=== PATIENT | female | born 1945 | race Hispanic/Latino ===

== ENCOUNTER 2020-07-23 13:39 | Inpatient (IN) | payer MEDICAID, OTHER, SELFPAY ==
--- OUTSIDE RECORDS SUMMARY | 2020-07-23 17:50 | XMS REPORT | Continuity of Care Document ---
:1945 Author Organization [facility] t Address [address] [place] [address] Dr. Garcia. [address] [place] [address] Care Team Providers Name Role Phone Sridevi Pantoja MD Attending Clinician Doctor Unassigned, Name Attending Clinician Unavailable Problems This patient has no known problems. Allergies, Adverse Reactions, Alerts This patient has no known allergies or adverse reactions. Medications This patient has no known medications. Procedures This patient has no known procedures. Encounters Start End Encounter Admission Attending Care Care Encounter Source Date/Time Date/Time Type Type Clinicians Facility Department ID 2020-07-09 2020-07-09 [facility] [id number] 10:30:00 23:59:00 Encounter Sridevi Flower [id number] [place] [id number] 2020-07-09 2020-07-09 Orders Doctor ARRON [id number] 00:00:00 00:00:00 Only Unassigned, SAMEER [id number] [place] [id number] Results This patient has no known results.
[2020-07-23 19:32] VITALS: BMI 27.1
[2020-07-23 21:37] LABS: Absolute Lymphocytes (CBC) 2.1 K/uL (0.7-4.9); Basophils % 1.2 % (0-1.3); Hematocrit 34.2 % (36.0-45.0); Lymphocytes % 32.5 % (15.3-44.8); MPV 8.6 fL (7.6-11.3); RBC Red Blood Cell Count 3.73 M/uL (3.86-4.86)
[2020-07-23 21:53] LABS: Albumin 3.8 g/dL (3.4-5.0); CKMB Creatine Kinase MB 2.4 ng/mL (0.3-3.6); Phosphorus 3.6 mg/dL (2.5-4.9); Potassium 3.5 mmol/L (3.5-5.1); Uric Acid 7.7 mg/dL (2.6-6.0)
[2020-07-23] MEDS: NA CHLORIDE 0.9% 1,000 ML IV SCH (22:24)
[2020-07-23 22:26] LABS: Urine Appearance CLEAR; Urine Bilirubin NEGATIVE (NEG); Urine Blood TRACE (NEG); Urine Color YELLOW; Urine Glucose NEGATIVE (NEG); Urine Protein 2+ (NEG); Urine Specific Gravity <=1.005 (1.005-1.030); Urine Urobilinogen 0.2 mg/dL (0.2-1.0)
[2020-07-24 00:02] LABS: Urine Microscopic Reflex ORDER UMIC
[2020-07-24 00:22] LABS: Urine Bacteria 20-50 /HPF (<20); Urine Yeast FEW (NONE SEEN)
--- NOTE | 2020-07-24 03:48 | P.HP ---
Certification for Inpatient Patient admitted to: Inpatient With expected LOS: >2 Midnights Patient will require the following post-hospital care: None Practitioner: I am a practitioner with admitting privileges, knowledge of patient current condition, hospital course, and medical plan of care. Services: Services provided to patient in accordance with Admission requirements found in Title 42 Section 412.3 of the Code of Federal Regulations Patient History Date of Service: 07/24/20 Reason for admission: HD catheter History of Present Illness: Ms. Bello is a 75 yo female with HTN and h/o of CVA here as a direct admit from Dr. Pantoja's office for catheter placement by surgery and initiation of hemodialysis. Per daughter, she had labs checked last month and more recently as was told her GFR was low. She denies chest pain, SOB, pain, edema, nausea, vomiting. Hemoglobin 11.5, Hematocrit 34.2. BUN 63. Cr 2.93. GFR 16. Glucose 147. Uric acid 7.7. PTH 175.5 Allergies No Known Allergies Allergy (Unverified 07/23/20 14:15) Home Medications: Amlodipine [Norvasc*] 5 mg PO DAILY 07/23/20 Clopidogrel Bisulfate [Plavix*] 75 mg PO DAILY 07/23/20 Metoprolol Succinate [Toprol Xl*] 50 mg PO BID 07/23/20 Rosuvastatin [Crestor*] 10 mg PO DAILY 07/23/20 - Past Medical/Surgical History Has patient received pneumonia vaccine in the past: No Diabetic: No -: HTN -: Arthritis -: CVA-1997 -: Hemorrhoidectomy - Family History Father History Unknown: Yes Mother -: Hypertension, Stroke - Social History Smoking Status: Never smoker Alcohol use: No CD- Drugs: No Caffeine use: Yes Place of Residence: Home Review of Systems General: Unremarkable Eyes: Unremarkable ENT: Unremarkable Respiratory: Unremarkable Cardiovascular: Unremarkable Gastrointestinal: Unremarkable Genitourinary: Unremarkable Musculoskeletal: Unremarkable Integumentary: Unremarkable Neurological: Unremarkable Lymphatics: Unremarkable Physical Examination - Vital Signs Temperature: 97.4 F Blood Pressure: 140/63 Pulse: 63 Respirations: 18 Pulse Ox (%): 98 - Physical Exam General: Alert, In no apparent distress, Oriented x3 HEENT: Atraumatic, Normocephalic, PERRLA, Mucous membr. moist/pink, EOMI, Sclerae nonicteric Neck: Supple, 2+ carotid pulse no bruit, JVD not distended, No Thyromegaly, No LAD Respiratory: Clear to auscultation bilaterally, Normal air movement Cardiovascular: Normal pulses, Regular rate/rhythm, Normal S1 S2, No gallops, No rubs, No murmurs Capillary refill: <2 Seconds Gastrointestinal: Normal bowel sounds, Soft and benign, Non-distended, No ascites, No tenderness, No masses, No rebound, No guarding Musculoskeletal: No clubbing, No swelling, No contractures, No erythema, No tenderness, No warmth Integumentary: No rashes, No breakdown, No significant lesion, No tenderness/swelling, No erythema, No warmth Neurological: Normal speech, Normal strength at 5/5 x4 extr, Normal tone, Sensation intact, Cranial nerves 3-12 intact, Normal affect Lymphatics: No axilla or inguinal lymphadenopathy - Studies Laboratory Data (last 24 hrs) 07/23/20 20:38: Sodium 139, Potassium 3.5, BUN 63 H, Creatinine 2.93 H, Glucose 147 H, Uric Acid 7.7 H, Phosphorus 3.6 07/23/20 20:38: WBC 6.30, Hgb 11.5 L, Hct 34.2 L, Plt Count 189 Assessment and Plan - Plan Assessment #Chronic Kidney Disease requiring HD #HTN #h/o of CVA #HLD Plan #Chronic Kidney Disease requiring HD -nephrology consult placed for HD, appreciate recommendations -surgery consult placed for catheter -case management consult placed for chair time -hepatitis panel pending #HTN -stable, continue to monitor -will reconcile home medications per nephrology recs #h/o of CVA -stable, continue to monitor -will reconcile home medications per nephrology recs #HLD -stable, continue to monitor -will reconcile home medications per nephrology recs Discharge Plan: Home Plan to discharge in: Unknown - Advance Directives Does patient have a Living Will: No Does patient have a Durable POA for Healthcare: No - Code Status/Comfort Care Code Status Assessed: Yes (full code) Critical Care: No Time Spent Managing Pts Care (In Minutes): 70
[2020-07-24 06:21] LABS: Absolute Lymphocytes (CBC) 4.2 K/uL (0.7-4.9); Basophils % 0.8 % (0-1.3); Lymphocytes % 52.5 % (15.3-44.8); MPV 8.3 fL (7.6-11.3)
[2020-07-24 07:14] LABS: Albumin 3.8 g/dL (3.4-5.0); Bilirubin Total 0.5 mg/dL (0.2-1.0); Phosphorus 3.6 mg/dL (2.5-4.9); Potassium 3.5 mmol/L (3.5-5.1); Protein, Total 7.7 g/dL (6.4-8.2)
[2020-07-24] MEDS ORDERED: PNEUMOCOCCAL VACCINE 0.5 ML IMVAC ONE (08:00)
[2020-07-24] MEDS ORDERED: INFLUENZA VACCINE (for 3y+) 0.5 ML DOSE IMVAC ONE (08:00)
[2020-07-24] MEDS: NA CHLORIDE 0.9% 1,000 ML IV SCH ×2 (08:20→13:42)
--- NOTE | 2020-07-24 10:07 | RAD REPORT ---
EXAM DESCRIPTION: RAD - Chest Pa And Lat (2 Views) - 07/24/2020 9:56 am CLINICAL HISTORY: clearance for sx Chest pain. COMPARISON: No comparisons FINDINGS: The lungs are clear. The heart is normal in size. No displaced fractures. IMPRESSION: No acute or concerning finding suspected.
[2020-07-24] MEDS ORDERED: NS 0.9% VIAL 10 ML ONE ×2 (10:53→12:03)
[2020-07-24] MEDS ORDERED: HEPARIN 5000 UNIT/ML 1 ML VIAL ONE ×2 (10:53→10:54)
[2020-07-24] MEDS ORDERED: NA CHLORIDE 0.9% 100 ML IV ONE (10:54)
[2020-07-24] MEDS: LIDOCAINE 1% MPF 30 ML VIAL ONE ×2 (10:54→12:09)
[2020-07-24 10:59] LABS: Protime INR 0.91
[2020-07-24] MEDS ORDERED: propofoL 200 MG/20 ML VIAL IV ONE (11:08)
[2020-07-24] MEDS ORDERED: LIDOCAINE 1% MPF 5 ML VIAL ONE (11:09)
[2020-07-24] MEDS ORDERED: FENTANYL CITR 100 MCG/2 ML ONE (11:09)
[2020-07-24] MEDS ORDERED: MIDAZOLAM HCL 2 MG/2 ML INJ ONE (11:09)
[2020-07-24] MEDS ORDERED: CEFAZOLIN SODIUM 1 GM/VIAL ONE (11:54)
--- NOTE | 2020-07-24 11:59 | CON ---
Date of Consultation: 07/24/2020 Diagnosis: Renal failure. History Of Present Illness: This is a case of a female 75-year-old patient with multiple medical pro blems, admitted to the hospital for placement of a hemodialysis catheter in need of hemodialysis. Gosia hanley has been dealing with low GFR for sometimes, but this time gets worse. Past Medical History: Include hypertension, arthritis, CVA 1997. Past Surgical History: Include hemorrhoidectomy. Allergies: NONE. Medications: Norvasc, Plavix, Toprol, Crestor. Family History: Include stroke, hypertension. Social History: She does not smoke. She does drink alcohol. Review of Systems: Ten points otherwise unremarkable. Physical Examination: General: The patient is awake and alert. HEENT: Pupils are equal and reactive, anicteric. Neck: Supple. Chest: Clear. Abdomen: Soft and depressible. No tenderness. Extremities: Good capillary refill. Laboratory Data: Blood work shows WBC count of 8.1 with hemoglobin of 12. INR 0.9. Potassium 3.5, creatinine is 2.73 with GFR of 17. Assessment: A 75-year-old patient need a hemodialysis catheter placement. A tunnel was request with benefits, alternatives, and risks fully explained to the patient which include, but not limited to i nfection, bleeding, damage to adjacent structures, anesthesia complication, hemothorax, pneumothorax, PE, DVTs, IA and even . They also understood this may not relieve symptoms. She might need mo re than one surgical intervention. She understands this is a temporary catheter, they are going to u se of the next few months and they decide to do permanent dialysis and she has to find a vascular kwan geon of her preference to put a peripheral more permanent access for dialysis. She understood the im portance of keeping the area clean. HM/MODL Voice ID: [id number] Report ID: [id number]
--- NOTE | 2020-07-24 12:18 | P.BOP ---
Preoperative diagnosis: ESRF Postoperative diagnosis: same Primary procedure: 1. Placement of Hemodialysis tunneled cath Secondary procedure: 2. Interpretation of fluoroscopy Other procedure(s): 3. right neck jugular vein ultrasound Estimated blood loss: <10cc Specimen: none Findings: patent Jugular Anesthesia: General Complications: None Drain(s): Other Transferred to: Recovery Room Condition: Good
[2020-07-24] MEDS ORDERED: HYDROCODONE/APAP 5/325 MG TAB PO PRN (12:21)
[2020-07-24] MEDS ORDERED: MORPHINE 2 MG/ML SYR IV PRN (12:21)
--- NOTE | 2020-07-24 12:28 | RAD REPORT ---
EXAM DESCRIPTION: RAD - Fluoroscopy <1 Hour - 07/24/2020 12:23 pm CLINICAL HISTORY: Venous catheter insertion. DIALYSIS CATH COMPARISON: No comparisons FINDINGS: Fluoroscopy time 0.4 minutes.
[2020-07-24] MEDS ORDERED: ONDANSETRON 4 MG/2 ML VIAL ONE (12:32)
[2020-07-24] MEDS ORDERED: dexAMETHasone 10 MG/ML VIAL ONE (12:32)
[2020-07-24 12:56] LABS: Blood Morphology Comment NOT SEEN (NOT SEEN); Platelet Estimate ADEQ; White Blood Cell Scan OK (OK)
--- NOTE | 2020-07-24 12:59 | OP ---
Date of Procedure: 07/24/2020 Surgeon: Roger Gambino MD Preoperative Diagnosis: End-stage renal disease. Postoperative Diagnosis: End-stage renal disease. Procedures Performed: 1.Placement of hemodialysis tunneled catheter in the right internal jugular vein. 2.Interpretation of fluoroscopy. 3.Right neck ultrasound. Anesthesia: General. Complications: None. Hemodialysis: 19 cm. Indications: This is a case of a 75-year-old patient in need of hemodialysis catheter. I was contac malik by the primary doctor for placement. The benefits, alternatives, and risks were fully explained to the patient and family which include, but not limited to infection, bleeding, damage to adjacent s tructures, anesthesia complication, recurrence, PEs, pericarditis, DVTs, MA, and even . She als o understands as soon as she is not using this and they terminate the dialysis, to remove this cathet er. If she continue with dialysis, then she needs a more permanent access as soon as possible. She understood, signed a consent. Description Of Procedure: The patient was brought to the operating room, placed in supine position. Anesthesia was done without complication. A time-out was called. Right neck was prepped and draped in sterile fashion. The patient was placed in Trendelenburg position. An ultrasound was done of th e right neck area looking to be a patent jugular vein. An 18-gauge needle was placed in the internal jugular vein at the first attempt. A guidewire was passed through. Needle was removed. This guide wire was guided into superior vena cava using fluoroscopy. An incision was made in the right upper c hest. The catheter was tunneled from there into the incision in the chest region. Then, we proceede d to place multiple dilators through the guidewire under fluoroscopy guidance and the introducer kit sheath. The guidewire was removed. The catheter was placed through the introducer sheath. The intr oducer sheath was then peeled off. This was done under fluoroscopy. The fluoroscopy showed catheter to be well positioned, excellent backflow and inflow. The line was secured in place with 3-0 nylon and the line was flushed with heparinized solution. The patient was brought back from Trendelenburg position to normal position. The patient tolerated the procedure well. The patient was sent to [facility] in stable condition and chest x-ray was ordered stat. HM/MODL Voice ID: [id number] Report ID: [id number]
--- NOTE | 2020-07-24 13:21 | RAD REPORT ---
EXAM DESCRIPTION: RAD - Chest Single View - 07/24/2020 1:10 pm CLINICAL HISTORY: S/P HD CATH INSERTION Chest pain. COMPARISON: Chest Pa And Lat (2 Views) dated 07/24/2020 FINDINGS: Portable technique limits examination quality. Right-sided venous catheter tip is in the SVC. No pneumothorax. The heart is normal in size. IMPRESSION: No postprocedure pneumothorax seen.
[2020-07-24] MEDS ORDERED: METOPROLOL XL 50 MG TAB PO SCH (21:00)
[2020-07-24] MEDS: METOPROLOL XL 50 MG TAB PO SCH (21:06)
[2020-07-24 23:17] LABS: Rheumatoid Factor POS (NEG); Rheumatoid Factor Titer 1:8 (64 RF IU/mL)
[2020-07-25 06:34] LABS: Albumin 3.4 g/dL (3.4-5.0); Potassium 4.1 mmol/L (3.5-5.1)
--- NOTE | 2020-07-25 08:32 | EKG ---
Test Date: 2020-07-24 Test Time: 09:58:07 Safety Engineer: CARIDAD MEASUREMENT RESULTS: Intervals: Rate: 72 DC: 176 QRSD: 100 QT: 394 QTc: 431 [place]: P: 33 DC: 176 QRS: 71 T: 24 INTERPRETIVE STATEMENTS: Normal sinus rhythm Normal ECG No previous ECG available for comparison Electronically Signed On 07-25-20 08:29:20 CHILD SUPPORT INVESTIGATOR by Juan Orozco
[2020-07-25] MEDS ORDERED: ROSUVASTATIN 10 MG TAB PO SCH (09:00)
[2020-07-25] MEDS: METOPROLOL XL 50 MG TAB PO SCH ×2 (09:00→21:18)
[2020-07-25] MEDS ORDERED: AMLODIPINE 5 MG TAB PO SCH (09:00)
--- NOTE | 2020-07-25 17:31 | P.CNS ---
Date of Consult: 07/25/20 Reason for Consult: CKD Chief Complaint: HD catheter History of Present Illness: A 75 yo female with P<Hx of progressive CKD , HTN and h/o of CVA pt admitted for progressive CKD and to initiate HD in ER BUN 63. Cr 2.93. GFR 16. Glucose 147. Uric acid 7.7. PTH 175.5 Review of Systems: Head and Neck: No red eye. No ear pain. GI: denied nausea or diarrhea. : No polyuria. No dysuria. No hematuria. Scallop Shucker: N/A Respiratory: No shortness of breath. Cardiovascular: denied chest pain or palpitation Endocrine: No polydipsia. Skin: No rash. Neuro: denied neuropathy. Musculoskeletal: hand cramping Physical exam general: AAOX3, NAD , Neck; Supple, No elevated JVD hear: RRR, normal S1,2 no murmur or rub Chest: CTAB, no rales or wheezes Abdomen: Soft , Nt Extremities No edema or ulcer A/P CKD V started on HD F/U serology W/U HD as per schedule renal dose meds Anemia of chronic disease no need for epogen HTN Controlled HLD cont statin total time spent 45min Allergies No Known Allergies Allergy (Unverified 07/23/20 14:15) Home Medications: Amlodipine [Norvasc*] 5 mg PO DAILY 07/23/20 Clopidogrel Bisulfate [Plavix*] 75 mg PO DAILY 07/23/20 Metoprolol Succinate [Toprol Xl*] 50 mg PO BID 07/23/20 Rosuvastatin [Crestor*] 10 mg PO DAILY 07/23/20 - Past Medical/Surgical History Diabetic: No -: HTN -: Arthritis -: CVA-1997 -: Hemorrhoidectomy - Family History Father History Unknown: Yes Mother Medical History: Hypertension, Stroke - Social History Alcohol use: No CD- Drugs: No Caffeine use: Yes Place of Residence: Home Physical Examination Temp Pulse Resp BP Pulse Ox 97.9 F 66 18 136/80 98 07/25/20 12:00 07/25/20 12:00 07/25/20 12:00 07/25/20 12:00 07/25/20 12:00 Laboratory Data (last 24 hrs) 07/25/20 05:54: Sodium 147 H, Potassium 4.1, BUN 46 H, Creatinine 2.77 H, Glucose 134 H, Phosphorus 3.0
[2020-07-26 06:58] LABS: Albumin 3.3 g/dL (3.4-5.0); Potassium 3.8 mmol/L (3.5-5.1)
[2020-07-26] MEDS: METOPROLOL XL 50 MG TAB PO SCH ×2 (10:07→21:16)
--- NOTE | 2020-07-26 12:42 | P.PN ---
Subjective Date of Service: 07/26/20 Chief Complaint: HD catheter A 75 yo female with PHHx of CKD , HTN and h/o of CVA pt admitted for renal biopsy and to initiate HD in ER BUN 63. Cr 2.93. GFR 16. Glucose 147. Uric acid 7.7. PTH 175.5 Today no overnight events stable VS next HD tomorrow or Monday Physical exam general: AAOX3, NAD , Neck; Supple, No elevated JVD hear: RRR, normal S1,2 no murmur or rub Chest: CTAB, no rales or wheezes Abdomen: Soft , Nt Extremities No edema or ulcer A/P JOHNY on CKD III started on HD F/U serology W/U HD on Monday renal dose meds plan for renal biopsy on Monday Anemia of chronic disease no need for epogen HTN Controlled HLD cont statin total time spent 45min Physical Examination - Vital Signs Temperature: 97.0 F Blood Pressure: 170/77 Pulse: 66 Respirations: 17 Pulse Ox (%): 98 - Studies Laboratory Data (last 24 hrs) 07/26/20 05:28: Sodium 143, Potassium 3.8, BUN 47 H, Creatinine 2.87 H, Glucose 116 H, Phosphorus 3.0 Microbiology Data (last 24 hrs): 07/23/20 20:15 Clean Catch Urine [place] Count - Final BETWEEN 10,000 & 100,000 CFU/ML 07/23/20 20:15 Clean Catch Urine - Final MIXED FERN.
--- NOTE | 2020-07-26 20:52 | P.PN ---
Subjective Date of Service: 07/25/20 Patient doing well with no new complaints. Status post hemodialysis. Clinically doing well. Review of Systems 10-point ROS is otherwise unremarkable Physical Examination - Vital Signs Temperature: 97.8 F Blood Pressure: 155/72 Pulse: 63 Respirations: 18 Pulse Ox (%): 95 - Physical Exam General: Alert, In no apparent distress, Oriented x3 Respiratory: Clear to auscultation bilaterally, Normal air movement Cardiovascular: Regular rate/rhythm, Normal S1 S2, No murmurs Gastrointestinal: Normal bowel sounds, Soft and benign, Non-distended, No tenderness Musculoskeletal: No clubbing, No swelling, No tenderness Neurological: Sensation intact, Cranial nerves 3-12 intact - Studies Laboratory Data (last 24 hrs) 07/26/20 05:28: Sodium 143, Potassium 3.8, BUN 47 H, Creatinine 2.87 H, Glucose 116 H, Phosphorus 3.0 Microbiology Data (last 24 hrs): 07/23/20 20:15 Clean Catch Urine [place] Count - Final BETWEEN 10,000 & 100,000 CFU/ML 07/23/20 20:15 Clean Catch Urine - Final MIXED FERN. Medications List Reviewed: Yes Assessment & Plan - Problems (Diagnosis) (1) ESRD (end stage renal disease) Current Visit: Yes Status: Acute (2) HTN (hypertension) Current Visit: Yes Status: Acute - Plan Plan: 1. Renal biopsy on Monday 2. Resume hemodialysis Monday 3. Monitor blood pressure 4. Monitor renal function 5. Monitor electrolytes 6. Hold anti-platelet therapy 7. GI/DVT prophylaxis Discharge Plan: Home Plan to discharge in: Greater than 2 days - Advance Directives Does patient have a Living Will: No Does patient have a Durable POA for Healthcare: No - Code Status/Comfort Care Code Status Assessed: Yes Code Status: Full Code Critical Care: No Time Spent Managing PTS Care (In Minutes): 35
--- NOTE | 2020-07-26 20:54 | P.PN ---
Date of Service: 07/26/20 Subjective spoke to patient's daughter today about plan of care. Arrange for outpatient hemodialysis. Renal biopsy tomorrow. Continue with hemodialysis during hospitalization. She may not be able to get the renal biopsy tomorrow because she had last dose of Plavix on . Today is day 3 being without Plavix and tomorrow will be day 4. discussed with Nephrology and they will talk with Radiology. Otherwise, clinically doing well. Review of Systems 10-point ROS is otherwise unremarkable Physical Examination - Vital Signs reviewed - Physical Exam General: Alert, In no apparent distress, Oriented x3 Respiratory: Clear to auscultation bilaterally, Normal air movement Cardiovascular: Regular rate/rhythm, Normal S1 S2, No murmurs Gastrointestinal: Normal bowel sounds, Soft and benign, Non-distended, No tenderness Musculoskeletal: No clubbing, No swelling, No tenderness Neurological: Sensation intact, Cranial nerves 3-12 intact Assessment & Plan - Problems (Diagnosis) (1) ESRD (end stage renal disease) Current Visit: Yes Status: Acute (2) HTN (hypertension) Current Visit: Yes Status: Acute - Plan Plan: 1. Renal biopsy possibly on Monday 2. Resume hemodialysis Monday 3. Monitor blood pressure 4. Monitor renal function 5. Monitor electrolytes 6. Hold anti-platelet therapy 7. GI/DVT prophylaxis
[2020-07-27 05:53] LABS: Absolute Lymphocytes (CBC) 2.9 K/uL (0.7-4.9); Basophils % 0.6 % (0-1.3); Hematocrit 34.9 % (36.0-45.0); Lymphocytes % 32.1 % (15.3-44.8); MPV 8.1 fL (7.6-11.3); RBC Red Blood Cell Count 3.78 M/uL (3.86-4.86)
[2020-07-27 06:30] LABS: Albumin 3.4 g/dL (3.4-5.0); Bilirubin Total 0.4 mg/dL (0.2-1.0); Magnesium 2.8 mg/dL (1.8-2.4); Phosphorus 4.3 mg/dL (2.5-4.9); Potassium 3.8 mmol/L (3.5-5.1); Protein, Total 7.1 g/dL (6.4-8.2)
--- NOTE | 2020-07-27 11:23 | P.PN ---
Subjective Date of Service: 07/27/20 Primary Care Provider: none; From the [facility] Chief Complaint: HD catheter Subjective: Improving, Doing well Physical Examination - Vital Signs Temperature: 98.1 F Blood Pressure: 170/76 Pulse: 56 Respirations: 18 Pulse Ox (%): 97 - Studies Laboratory Data (last 24 hrs) 07/27/20 05:38: Sodium 143, Potassium 3.8, BUN 56 H, Creatinine 3.11 H, Glucose 112 H, Phosphorus 4.3, Magnesium 2.8 H, Total Bilirubin 0.4, AST 36, ALT 44, Alkaline Phosphatase 56 07/27/20 05:38: WBC 9.10, Hgb 11.7 L, Hct 34.9 L, Plt Count 157 07/27/20 05:00: Sodium Cancelled, Potassium Cancelled, BUN Cancelled, Creatinine Cancelled, Glucose Cancelled, Phosphorus Cancelled Microbiology Data (last 24 hrs): 07/23/20 20:15 Clean Catch Urine [place] Count - Final BETWEEN 10,000 & 100,000 CFU/ML 07/23/20 20:15 Clean Catch Urine - Final MIXED FERN. Medications List Reviewed: Yes Assessment & Plan Discharge Plan: Home Plan to discharge in: 72 Hours Physician Review Additional Text: Physical exam: Patient alert, cooperative. No significant distress noted. Heart: Regular rate rhythm Lungs: Clear to auscultation Abdomen: Soft nontender nondistended Extremities: Good range of motion Impression: Acute on chronic renal disease stage 5 now with end-stage renal disease on hemodialysis Hypertension Hyperlipidemia History CVA Plan: Acute on chronic renal disease stage 5 now with end-stage renal disease on hemodialysis: Patient had dialysis catheter placed. Continue with hemodialysis today. Will adjust blood pressure medication for better control. Will add Norvasc. Patient remains on metoprolol. Continue to hold Plavix in preparation for renal biopsy on Monday. Found out patient is uninsured and from the [facility]. This will be difficult for her to qualify for outpatient hemodialysis. Will discuss with social science instructor and Nephrology. Spoke with patient and daughter at length. Patient desires to go back to the [facility] in the future. Will discuss with Nephrology about options of care for her as it relates to hemodialysis as an outpatient. Because of her uninsured status and from the [facility] patient will likely require hospitalization for future dialysis. Anticipate likely discharge on Monday after biopsy. Hypertension: Continue metoprolol. Add Norvasc. Will continue to adjust medication Hyperlipidemia: Restart Crestor History CVA: Continue to hold Plavix in preparation for renal biopsy on Monday. Time Spent Managing Pts Care (In Minutes): 55
[2020-07-27] MEDS: METOPROLOL XL 50 MG TAB PO SCH ×2 (12:16→21:43)
[2020-07-27 16:03] LABS: HIV AG/AB 4TH GEN Non-reactive (Non-reactive)
[2020-07-27 16:04] LABS: HIV AG/AB 4TH GEN Non-reactive (Non-reactive)
[2020-07-27] MEDS ORDERED: PNEUMOCOCCAL VACCINE 0.5 ML IMVAC ONE (19:00)
[2020-07-27 19:05] LABS: HBsAG Nonreactive (Nonreactive)
[2020-07-27] MEDS: ROSUVASTATIN 10 MG TAB PO SCH (21:43)
--- NOTE | 2020-07-28 01:34 | PN ---
Date of Progress Note: 07/27/2020 Chief Complaint: Chronic kidney disease, accelerated chronic kidney disease, prerenal azotemia. BUN is 63, creatinine 9.3, and glucose 137. Review of Systems: Denies PND or orthopnea. Physical Examination: Lungs: Diminished breath sounds at bases. Heart: S1, S2. Extremities: No edema. Impression And Plan: 1.Progressive renal insufficiency, chronic kidney disease stage 4/5. The patient will continue matilda l dose of medication. 2.Hypertension. Controlled. 3.Arthritis. Avoid nonsteroidal anti-inflammatory medication. 4.Hyperlipidemia. The patient is on Lipitor. Monitor CK level. EB/MODL Voice ID: [id number] Report ID: [id number]
[2020-07-28 05:49] LABS: Albumin 3.6 g/dL (3.4-5.0); Phosphorus 4.3 mg/dL (2.5-4.9)
--- NOTE | 2020-07-28 08:40 | RAD REPORT ---
EXAM DESCRIPTION: US - Renal Ultrasound-Complete - 07/28/2020 8:12 am CLINICAL HISTORY: Acute renal insufficiency/chronic renal insufficiency COMPARISON: None FINDINGS: The right kidney measures 9 centimeters with an increased echotexture The left kidney measures 9 centimeters with an increased echotexture. Small bilateral renal cysts Hydronephrosis is not seen. No gross abnormality of bladder Cholelithiasis IMPRESSION: Markedly increased renal echotexture consistent with parenchymal disease. Cholelithiasis
[2020-07-28] MEDS: METOPROLOL XL 50 MG TAB PO SCH ×2 (08:46→21:11)
[2020-07-28] MEDS ORDERED: AMLODIPINE 5 MG TAB PO SCH (09:00)
--- NOTE | 2020-07-28 09:07 | P.PN ---
Subjective Date of Service: 07/28/20 Primary Care Provider: none; From the [facility] Chief Complaint: HD catheter Subjective: Doing well (Reports some constipation.) Physical Examination - Vital Signs Temperature: 98.2 F Blood Pressure: 210/93 Pulse: 64 Respirations: 18 Pulse Ox (%): 96 - Studies Laboratory Data (last 24 hrs) 07/28/20 05:11: Sodium 147 H, Potassium 4.0, BUN 53 H, Creatinine 3.03 H, Glucose 115 H, Phosphorus 4.3 Medications List Reviewed: Yes Assessment & Plan Discharge Plan: Home Plan to discharge in: 24 Hours Physician Review Additional Text: Physical exam: Patient alert, cooperative. No significant distress noted. Up pressures remain elevated. Heart: Regular rate rhythm Lungs: Clear to auscultation Abdomen: Soft nontender nondistended Extremities: Good range of motion Impression: Acute on chronic renal disease stage 5 now with end-stage renal disease on hemodialysis Hypertension Hyperlipidemia History CVA Constipation Plan: Acute on chronic renal disease stage 5 now with end-stage renal disease on hemodialysis: Continue with dialysis. Blood pressure remains elevated. Will increase Norvasc to 10 mg daily. Will also add hydralazine 25 mg 3 times a day. Continue metoprolol. Continue to hold Plavix in preparation for renal biopsy on Monday. Found out patient is uninsured and from the [facility]. This will be difficult for her to qualify for outpatient hemodialysis. Spoke with patient and daughter at length. Patient desires to go back to the [facility] in the future. Today patient reports that she may be able to get some assistance for insurance. Will need to discuss this with social work as this may help her get outpatient dialysis. Will also discuss with nephrology about options of care if no insurance is available. Because of her uninsured status and from the [facility] patient will likely require hospitalization for future dialysis needs. Will discuss with nephrology. Anticipate likely discharge on Monday after biopsy. Hypertension: Continue metoprolol. Increase Norvasc. Additional medication includes hydralazine. Hyperlipidemia: Continue Crestor History CVA: Continue to hold Plavix in preparation for renal biopsy on Monday. Constipation: Will add stool softener. Time Spent Managing Pts Care (In Minutes): 55
[2020-07-28] MEDS: DOCUSATE NA 100 MG CAP PO SCH (11:51)
[2020-07-28] MEDS: HYDRALAZINE HCL 25 MG TABLET PO SCH ×2 (14:40→21:13)
[2020-07-28] MEDS ORDERED: BISACODYL 10 MG RECTAL SUPP PR ONE (21:00)
[2020-07-28] MEDS: ROSUVASTATIN 10 MG TAB PO SCH (21:13)
--- NOTE | 2020-07-29 01:01 | PN ---
Date of Progress Note: 07/28/2020 Chief Complaint: Chronic kidney disease, accelerated chronic kidney disease versus acute kidney inju ry. BUN is 63 and creatinine was 9.3. Subjective: The patient was started on dialysis. Renal ultrasound revealed hyperechoic kidney. Review of Systems: Denies PND or orthopnea. Physical Examination: Lungs: Diminished breath sounds at bases. Heart: S1, S2. Abdomen: Soft, benign. Extremities: No edema. Impression And Plan: 1.Progressive renal insufficiency, chronic kidney disease stage 4/5. The patient was initiated on d ialysis. The patient will have dialysis today. 2.Hypertension, controlled. Monitor blood pressure. 3.Arthritis. Avoid nonsteroidal anti-inflammatory medication. 4.Hyperlipidemia. The patient is on Lipitor. Monitor CK level. LESLIE/KEREN Voice ID: [id number] Report ID: [id number]
[2020-07-29 05:26] LABS: Albumin, (SPE) 3.9 g/dL (3.8-4.8); Alpha-1-Globulins 0.2 g/dL (0.2-0.3); Alpha-2-Globulins 1.1 g/dL (0.5-0.9); Gamma Globulins 0.9 g/dL (0.8-1.7); INTERPRETATION REPORT
[2020-07-29 06:34] LABS: Absolute Lymphocytes (CBC) 1.4 K/uL (0.7-4.9); Basophils % 0.5 % (0-1.3); Hematocrit 36.9 % (36.0-45.0); Lymphocytes % 11.8 % (15.3-44.8); MPV 9.3 fL (7.6-11.3); RBC Red Blood Cell Count 4.02 M/uL (3.86-4.86)
[2020-07-29 06:41] LABS: Magnesium 2.4 mg/dL (1.8-2.4); Potassium 4.3 mmol/L (3.5-5.1)
[2020-07-29] MEDS: METOPROLOL XL 50 MG TAB PO SCH ×2 (09:00→21:46)
[2020-07-29] MEDS: HYDRALAZINE HCL 25 MG TABLET PO SCH ×3 (09:00→21:46)
[2020-07-29] MEDS ORDERED: DESMOPRESSIN 4 MCG/ML AMP IV ONE (09:00)
[2020-07-29] MEDS ORDERED: MIDAZOLAM HCL 2 MG/2 ML INJ ONE (09:04)
[2020-07-29] MEDS ORDERED: NALOXONE 0.4 MG/ML VIAL ONE (09:04)
[2020-07-29] MEDS ORDERED: FENTANYL CITR 100 MCG/2 ML ONE (09:05)
[2020-07-29] MEDS ORDERED: DESMOPRESSIN 20 MCG in NA CHLORIDE 0.9% 50 ML IV ONE (10:00)
--- NOTE | 2020-07-29 11:44 | P.PN ---
Subjective Date of Service: 07/29/20 Primary Care Provider: none; From the [facility] Chief Complaint: HD catheter Subjective: Improving, Doing well Physical Examination - Vital Signs Temperature: 98.7 F Blood Pressure: 136/72 Pulse: 97 Respirations: 18 Pulse Ox (%): 99 - Studies Laboratory Data (last 24 hrs) 07/29/20 05:11: Sodium 137, Potassium 4.3, BUN 32 H D, Creatinine 2.71 H, Glucose 133 H, Magnesium 2.4 07/29/20 05:11: WBC 11.50 H D, Hgb 12.2, Hct 36.9, Plt Count 142 L Medications List Reviewed: Yes Assessment & Plan Discharge Plan: Home Plan to discharge in: 24 Hours Physician Review Additional Text: Physical exam: Patient alert, cooperative. No significant distress noted. Blood pressure is now better control. Heart: Regular rate rhythm Lungs: Clear to auscultation Abdomen: Soft nontender nondistended Extremities: Good range of motion Impression: Acute on chronic renal disease stage 5 now with end-stage renal disease on hemodialysis Hypertension Hyperlipidemia History CVA Constipation Plan: Acute on chronic renal disease stage 5 now with end-stage renal disease on hemodialysis: Patient had renal biopsy done today. Blood pressure improved with adjustments in medication. Currently on Norvasc, hydralazine and metoprolol. Spoke with social work. Patient is originally from the [facility]. She has the resident card. Patient to get insurance in November. Spoke with nephrology concerning this. Patient may require future dialysis but this may be limited due to lack of insurance for short while. Best case scenario is the patient go home with dialysis catheter. Family to try to get her on insurance sooner rather than later. Hopefully her condition will continue to improve without the need for dialysis. Await preliminary biopsy report. Possible discharge as early as tomorrow. Hypertension: Blood pressure improved with metoprolol, Norvasc and hydralazine. Hyperlipidemia: Continue Crestor History CVA: Hold Plavix in preparation for biopsy. Restart tomorrow. Constipation: Continue with stool softener. Time Spent Managing Pts Care (In Minutes): 55
--- NOTE | 2020-07-29 13:45 | RAD REPORT ---
EXAM DESCRIPTION: CT - Renal Biopsy CT - 07/29/2020 11:58 am CLINICAL HISTORY: Chronic and acute renal disease TECHNIQUE: The risks, benefits alternatives to the procedure were explained to the patient and infor med consent obtained Conscious sedation was performed for approximately 30 minutes. A nurse monitored vital signs througho ut the examination 2 milligrams Versed and 75 micrograms fentanyl administered intravenously All CT scans are performed using dose optimization technique as appropriate and may include automated exposure control or mA/KV adjustment according to patient size. The skin, subcutaneous tissue and musculature were anesthetized Lidocaine. Under CT guidance a 17 gauge needle was placed into the posterior aspect of the lower pole of the lef t kidney. An 18 gauge needle was then placed through this and 2 two centimeter core specimens obtaine d and given to pathology The post biopsy images do not demonstrate a hematoma. Patient experienced no immediate complication IMPRESSION: Two core biopsies of the left kidney
[2020-07-29] MEDS: AMLODIPINE 10 MG TAB PO SCH (16:20)
[2020-07-29] MEDS: ROSUVASTATIN 10 MG TAB PO SCH (21:46)
[2020-07-30 06:45] LABS: Absolute Lymphocytes (CBC) 2.4 K/uL (0.7-4.9); Basophils % 0.3 % (0-1.3); Hematocrit 33.9 % (36.0-45.0); Lymphocytes % 16.8 % (15.3-44.8); MPV 8.4 fL (7.6-11.3); RBC Red Blood Cell Count 3.66 M/uL (3.86-4.86)
[2020-07-30 06:59] LABS: Magnesium 2.8 mg/dL (1.8-2.4); Potassium 3.8 mmol/L (3.5-5.1)
[2020-07-30] MEDS: DOCUSATE NA 100 MG CAP PO SCH (09:00)
[2020-07-30] MEDS: AMLODIPINE 10 MG TAB PO SCH (09:00)
[2020-07-30] MEDS: METOPROLOL XL 50 MG TAB PO SCH ×2 (09:00→22:22)
[2020-07-30] MEDS: HYDRALAZINE HCL 25 MG TABLET PO SCH ×3 (09:00→22:22)
--- NOTE | 2020-07-30 10:00 | PN ---
Date of Progress Note: 07/29/2020 Subjective: The patient was admitted with acute kidney injury, proteinuric progression. The patient had PermCath placement, initiated on dialysis. The patient is planned for kidney biopsy today. Serology came positive for rheumatoid arthritis. Objective: Vital Signs: Blood pressure of 131/66, pulse of 77, afebrile. Chest: Clear to auscultation. Heart: S1, S2. Regular. Abdomen: Soft, nontender. Extremities: No edema. Neurological: Alert and oriented x3. No focal. Current Medications: 1. Heparin has been held. 2. Tylenol. 3. Plavix on hold. 4. Pantoprazole. Laboratory Data: WBC 11.5, H and H 12.2/36.9. Sodium 137, potassium 4.3, bicarb 24, BUN 32, creatinine 2.7. Assessment And Plan: 1. Acute kidney injury on chronic kidney disease, unknown etiology, possible autoimmune disease. Positive proteinuric. We will follow up with the results of the kidney biopsy. Currently the patient nonoliguric. No hyperkalemia or acidosis. I am going to follow up the chemistry tomorrow. If kidney function stays stable and the patient does not have any other symptoms for the uremia or hyperkalemia or acidosis, I am going to hold on the dialysis and we will watch the patient closely. We will follow up the kidney biopsy. 2. Hypertension, controlled, optimal. Keep holding any LILO inhibitor or ARB for the time being. No need for diuresis. 3. Anemia of chronic kidney disease/iron deficiency anemia, continue IV iron. No need for EMMA for the time being given the hemoglobin of 12.5. 4. Coronary artery disease, stable. We will consider resuming Plavix after 24 hours from the biopsy. time spent examined the patient face to face s discussed with the patient placed order discussing the case with other garment steamer including nurses , discussing with other specialist include a hospitalist 45 min EVELINE/KEREN Voice ID: [id number] Report ID: [id number] RANJITH
--- NOTE | 2020-07-30 17:03 | P.PN ---
Subjective Date of Service: 07/30/20 Primary Care Provider: none; From the [facility] Chief Complaint: HD catheter Subjective: Doing well Physical Examination - Vital Signs Temperature: 98.1 F Blood Pressure: 125/61 Pulse: 75 Respirations: 16 Pulse Ox (%): 98 - Studies Laboratory Data (last 24 hrs) 07/30/20 06:18: Sodium 135 L, Potassium 3.8, BUN 47 H, Creatinine 3.71 H D, Glucose 129 H, Magnesium 2.8 H 07/30/20 06:18: WBC 14.10 H D, Hgb 11.3 L, Hct 33.9 L, Plt Count 139 L Medications List Reviewed: Yes Assessment & Plan Discharge Plan: Home Plan to discharge in: 24 Hours Physician Review Additional Text: Physical exam: Patient alert, cooperative. No significant distress noted. Blood pressure is now better control. Heart: Regular rate rhythm Lungs: Clear to auscultation Abdomen: Soft nontender nondistended Extremities: Good range of motion Impression: Acute on chronic renal disease stage 5 now with end-stage renal disease on hemodialysis Hypertension Hyperlipidemia History CVA Constipation Plan: Acute on chronic renal disease stage 5 now with end-stage renal disease on hemodialysis: Renal biopsy done yesterday. Blood pressure improved with adjustments in medication. Currently on Norvasc, hydralazine and metoprolol. Spoke with social work. Patient is originally from the [facility]. She has the resident card. Patient to get insurance in November. Awaiting to hear from social work and Valeria on disposition. Need to determine if patient will be able to get outpatient dialysis or patient to continue with dialysis catheter in return to the hospital if needed.. Hypertension: Blood pressure improved with metoprolol, Norvasc and hydralazine. Hyperlipidemia: Continue Crestor History CVA: Restart Plavix. Constipation: Continue with stool softener. Time Spent Managing Pts Care (In Minutes): 55
[2020-07-30] MEDS: ROSUVASTATIN 10 MG TAB PO SCH (22:22)
--- NOTE | 2020-07-30 22:49 | P.PN ---
Subjective Date of Service: 07/30/20 Primary Care Provider: none; From the [facility] Chief Complaint: HD catheter Physical Examination - Vital Signs Temperature: 97.6 F Blood Pressure: 142/68 Pulse: 87 Respirations: 18 Pulse Ox (%): 95 - Studies Laboratory Data (last 24 hrs) 07/30/20 06:18: Sodium 135 L, Potassium 3.8, BUN 47 H, Creatinine 3.71 H D, Glucose 129 H, Magnesium 2.8 H 07/30/20 06:18: WBC 14.10 H D, Hgb 11.3 L, Hct 33.9 L, Plt Count 139 L Medications List Reviewed: Yes Assessment And Plan - Plan A/P # ESRD on HD Cont HD TTS HD access: permcath S/p kidney biopsy on 07/29/20 - f/u result Renal diet F/u outpt HD placement # Htn; Hx of CVA Cont current regimen # Anemia Monitor H/H # 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 No significant distress noted. Blood pressure is now better control. Heart: Regular rate rhythm Lungs: Clear to auscultation Abdomen: Soft nontender nondistended Extremities: Good range of motion Impression: Acute on chronic renal disease stage 5 now with end-stage renal disease on hemodialysis Hypertension Hyperlipidemia History CVA Constipation Plan: Acute on chronic renal disease stage 5 now with end-stage renal disease on hemodialysis: Renal biopsy done yesterday. Blood pressure improved with adjustments in medication. Currently on Norvasc, hydralazine and metoprolol. Spoke with social work. Patient is originally from the [facility]. She has the resident card. Patient to get insurance in November. Awaiting to hear from social work and Valeria on disposition. Need to determine if patient will be able to get outpatient dialysis or patient to continue with dialysis catheter in return to the hospital if needed.. Hypertension: Blood pressure improved with metoprolol, Norvasc and hydralazine. Hyperlipidemia: Continue Crestor History CVA: Restart Plavix. Constipation: Continue with stool softener.
[2020-07-31] MEDS: DOCUSATE NA 100 MG CAP PO SCH (09:00)
[2020-07-31] MEDS: HYDRALAZINE HCL 25 MG TABLET PO SCH ×3 (09:33→21:00)
[2020-07-31] MEDS: AMLODIPINE 10 MG TAB PO SCH (09:34)
[2020-07-31] MEDS: METOPROLOL XL 50 MG TAB PO SCH ×2 (09:35→21:00)
[2020-07-31 09:59] LABS: Magnesium 2.5 mg/dL (1.8-2.4); Potassium 3.5 mmol/L (3.5-5.1)
[2020-07-31 10:00] LABS: Absolute Lymphocytes (CBC) 1.9 K/uL (0.7-4.9); Basophils % 0.4 % (0-1.3); Hematocrit 33.4 % (36.0-45.0); Lymphocytes % 16.2 % (15.3-44.8); MPV 8.6 fL (7.6-11.3)
--- NOTE | 2020-07-31 12:57 | P.PN ---
Subjective Date of Service: 08/01/20 Primary Care Provider: none; From the [facility] Chief Complaint: HD catheter Subjective: No new changes Physical Examination - Vital Signs Temperature: 98.2 F Blood Pressure: 123/63 Pulse: 72 Respirations: 18 Pulse Ox (%): 94 - Physical Exam General: In no apparent distress HEENT: Atraumatic, Normocephalic Neck: Supple Respiratory: Clear to auscultation bilaterally Cardiovascular: No murmurs Gastrointestinal: Soft and benign, Non-distended Musculoskeletal: No clubbing - Studies Laboratory Data (last 24 hrs) 07/31/20 09:18: WBC 11.90 H D, Hgb 11.0 L, Hct 33.4 L, Plt Count 145 L 07/31/20 01:42: Sodium 136, Potassium 3.5, BUN 40 H, Creatinine 3.17 H, Glucose 149 H, Magnesium 2.5 H Medications List Reviewed: Yes Assessment And Plan - Plan A/P # ESRD on HD Cont HD TTS HD access: permcath S/p kidney biopsy on 07/29/20 - result w/ severe interstitial fibrosis & tubular atrophy c/w true ESRD Renal diet F/u outpt HD placement # Htn; Hx of CVA Cont current regimen # Anemia Monitor H/H # 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 No significant distress noted. Blood pressure is now better control. Heart: Regular rate rhythm Lungs: Clear to auscultation Abdomen: Soft nontender nondistended Extremities: Good range of motion Impression: Acute on chronic renal disease stage 5 now with end-stage renal disease on hemodialysis Hypertension Hyperlipidemia History CVA Constipation Plan: Acute on chronic renal disease stage 5 now with end-stage renal disease on hemodialysis: Renal biopsy done yesterday. Blood pressure improved with adjustments in medication. Currently on Norvasc, hydralazine and metoprolol. Spoke with social work. Patient is originally from the [facility]. She has the resident card. Patient to get insurance in November. Awaiting to hear from social work and Valeria on disposition. Need to determine if patient will be able to get outpatient dialysis or patient to continue with dialysis catheter in return to the hospital if needed.. Hypertension: Blood pressure improved with metoprolol, Norvasc and hydralazine. Hyperlipidemia: Continue Crestor History CVA: Restart Plavix. Constipation: Continue with stool softener.
--- NOTE | 2020-07-31 14:09 | P.PN ---
Subjective Date of Service: 07/31/20 Primary Care Provider: none; From the [facility] Chief Complaint: HD catheter Subjective: Improving, Doing well Physical Examination - Vital Signs Temperature: 98.2 F Blood Pressure: 123/63 Pulse: 72 Respirations: 18 Pulse Ox (%): 94 - Studies Laboratory Data (last 24 hrs) 07/31/20 09:18: WBC 11.90 H D, Hgb 11.0 L, Hct 33.4 L, Plt Count 145 L 07/31/20 01:42: Sodium 136, Potassium 3.5, BUN 40 H, Creatinine 3.17 H, Glucose 149 H, Magnesium 2.5 H Medications List Reviewed: Yes Assessment & Plan Discharge Plan: Home Plan to discharge in: 24 Hours Physician Review Additional Text: Physical exam: Patient alert, cooperative. No significant distress noted. Blood pressure is now better control. Heart: Regular rate rhythm Lungs: Clear to auscultation Abdomen: Soft nontender nondistended Extremities: Good range of motion Impression: Acute on chronic renal disease stage 5 now with end-stage renal disease on hemodialysis Hypertension Hyperlipidemia History CVA Constipation Plan: Acute on chronic renal disease stage 5 now with end-stage renal disease on hemodialysis: Awaiting biopsy report. Blood pressure improved with adjustments in medication. Currently on Norvasc, hydralazine and metoprolol. Spoke with social work. Still waiting on approval from [email or web address]. Spoke with nephrology about the possibility of another facility in [facility]. Need to determine if patient will have outpatient dialysis or will need to come to the hospital as needed. Spoke with patient and daughter. Await recommendations from facility. Hypertension: Blood pressure improved with metoprolol, Norvasc and hydralazine. Hyperlipidemia: Continue Crestor History CVA: Continue Plavix. Constipation: Continue with stool softener. Time Spent Managing Pts Care (In Minutes): 55
[2020-07-31] MEDS ORDERED: ACETAMINOPHEN 500 MG TAB PO PRN (16:03)
[2020-07-31] MEDS: ROSUVASTATIN 10 MG TAB PO SCH (21:06)
[2020-08-01 07:01] LABS: Absolute Lymphocytes (CBC) 2.2 K/uL (0.7-4.9); Basophils % 0.4 % (0-1.3); Hematocrit 30.4 % (36.0-45.0); Lymphocytes % 24.2 % (15.3-44.8); MPV 8.5 fL (7.6-11.3); RBC Red Blood Cell Count 3.31 M/uL (3.86-4.86)
[2020-08-01 07:04] LABS: Potassium 3.5 mmol/L (3.5-5.1)
--- NOTE | 2020-08-01 08:05 | P.PN ---
Subjective Date of Service: 08/01/20 Primary Care Provider: none; From the [facility] Chief Complaint: HD catheter Subjective: Doing well Physical Examination - Vital Signs Temperature: 98.2 F Blood Pressure: 123/63 Pulse: 72 Respirations: 18 Pulse Ox (%): 94 - Studies Laboratory Data (last 24 hrs) 08/01/20 06:30: Sodium 138, Potassium 3.5, BUN 58 H, Creatinine 3.72 H, Glucose 113 H 08/01/20 06:30: WBC 9.10 D, Hgb 10.3 L, Hct 30.4 L, Plt Count 147 L 07/31/20 09:18: WBC 11.90 H D, Hgb 11.0 L, Hct 33.4 L, Plt Count 145 L 07/31/20 01:42: Sodium 136, Potassium 3.5, BUN 40 H, Creatinine 3.17 H, Glucose 149 H, Magnesium 2.5 H Medications List Reviewed: Yes Assessment & Plan Discharge Plan: Home Plan to discharge in: 24 Hours Physician Review Additional Text: Physical exam: Patient alert, cooperative. No significant distress noted. Blood pressure is now better control. Heart: Regular rate rhythm Lungs: Clear to auscultation Abdomen: Soft nontender nondistended Extremities: Good range of motion Impression: Acute on chronic renal disease stage 5 now with end-stage renal disease on hemodialysis Hypertension Hyperlipidemia History CVA Constipation Plan: Acute on chronic renal disease stage 5 now with end-stage renal disease on hemodialysis: Waiting on preliminary renal biopsy report from nephrology. Also watiting to hear from [facility] on whether patient will be able to be sent home with planned outpatient dialysis. Still waiting approval. Social work was also to check another dialysis company and location in [facility]. Will discuss with nephrology at length. If she is not approve for outpatient dialysis then patient will likely go home with catheter and placed and return to the hospital as needed for dialysis. Will discuss further with family, patient and Nephrology. Possible discharge as early as today. Hypertension: Blood pressure improved with metoprolol, Norvasc and hydralazine. Hyperlipidemia: Continue Crestor History CVA: Continue Plavix. Constipation: Continue with stool softener. Time Spent Managing Pts Care (In Minutes): 55
[2020-08-01] MEDS: HYDRALAZINE HCL 25 MG TABLET PO SCH ×3 (08:41→20:38)
[2020-08-01] MEDS: AMLODIPINE 10 MG TAB PO SCH (08:41)
[2020-08-01] MEDS: DOCUSATE NA 100 MG CAP PO SCH (08:41)
[2020-08-01] MEDS: METOPROLOL XL 50 MG TAB PO SCH ×2 (08:41→20:38)
--- NOTE | 2020-08-01 09:33 | P.PN ---
Subjective Date of Service: 08/02/20 Primary Care Provider: none; From the [facility] Chief Complaint: HD catheter Subjective: No new changes Physical Examination - Vital Signs Temperature: 98.2 F Blood Pressure: 123/63 Pulse: 72 Respirations: 18 Pulse Ox (%): 94 - Physical Exam General: In no apparent distress HEENT: Atraumatic, Normocephalic Neck: Supple, Without JVD or thyroid abnormality Respiratory: Clear to auscultation bilaterally Cardiovascular: No murmurs Gastrointestinal: Soft and benign, Non-distended Musculoskeletal: No clubbing Neurological: Normal speech, Normal affect - Studies Laboratory Data (last 24 hrs) 08/01/20 06:30: Sodium 138, Potassium 3.5, BUN 58 H, Creatinine 3.72 H, Glucose 113 H 08/01/20 06:30: WBC 9.10 D, Hgb 10.3 L, Hct 30.4 L, Plt Count 147 L 07/31/20 09:18: WBC 11.90 H D, Hgb 11.0 L, Hct 33.4 L, Plt Count 145 L 07/31/20 01:42: Sodium 136, Potassium 3.5, BUN 40 H, Creatinine 3.17 H, Glucose 149 H, Magnesium 2.5 H Medications List Reviewed: Yes Assessment And Plan - Plan A/P # ESRD on HD HD today Cont HD TTS HD access: permcath S/p kidney biopsy on 07/29/20 - showed severe interstitial fibrosis & tubular atrophy c/w true ESRD Renal diet F/u outpt HD placement; she is unfunded # Htn; Hx of CVA Cont current regimen # Anemia Monitor H/H # 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 No significant distress noted. Blood pressure is now better control. Heart: Regular rate rhythm Lungs: Clear to auscultation Abdomen: Soft nontender nondistended Extremities: Good range of motion Impression: Acute on chronic renal disease stage 5 now with end-stage renal disease on hemodialysis Hypertension Hyperlipidemia History CVA Constipation Plan: Acute on chronic renal disease stage 5 now with end-stage renal disease on hemodialysis: Waiting on preliminary renal biopsy report from nephrology. Also watiting to hear from [facility] on whether patient will be able to be sent home with planned outpatient dialysis. Still waiting approval. Social work was also to check another dialysis company and location in [facility]. Will discuss with nephrology at length. If she is not approve for outpatient dialysis then patient will likely go home with catheter and placed and return to the hospital as needed for dialysis. Will discuss further with family, patient and Nephrology. Possible discharge as early as today. Hypertension: Blood pressure improved with metoprolol, Norvasc and hydralazine. Hyperlipidemia: Continue Crestor History CVA: Continue Plavix. Constipation: Continue with stool softener.
[2020-08-01] MEDS: ROSUVASTATIN 10 MG TAB PO SCH (20:37)
[2020-08-02 07:55] LABS: Magnesium 2.5 mg/dL (1.8-2.4); Phosphorus 2.7 mg/dL (2.5-4.9); Potassium 3.7 mmol/L (3.5-5.1)
--- NOTE | 2020-08-02 09:04 | P.PN ---
Subjective Date of Service: 08/02/20 Primary Care Provider: none; From the [facility] Chief Complaint: HD catheter Subjective: No new changes Physical Examination - Vital Signs Temperature: 98.5 F Blood Pressure: 139/68 Pulse: 85 Respirations: 16 Pulse Ox (%): 96 - Physical Exam General: In no apparent distress HEENT: Atraumatic, Normocephalic Neck: Supple, Without JVD or thyroid abnormality Respiratory: Clear to auscultation bilaterally Cardiovascular: No murmurs - Studies Laboratory Data (last 24 hrs) 08/02/20 06:28: Sodium 141, Potassium 3.7, BUN 23 H D, Creatinine 2.08 H D, Glucose 112 H, Phosphorus 2.7, Magnesium 2.5 H 08/02/20 05:00: Phosphorus Cancelled, Magnesium Cancelled Medications List Reviewed: Yes Assessment And Plan - Plan A/P # ESRD on HD HD received yesterday No acute indiction for HD today Cont HD TTS HD access: permcath S/p kidney biopsy on 07/29/20 - showed severe interstitial fibrosis & tubular atrophy c/w true ESRD Renal diet Nephro-quincy daily F/u outpt HD placement; she is unfunded # Htn; Hx of CVA BP at goal Cont current regimen # Anemia Monitor H/H # CKD-MBD Phos below goal, avoid binder # Dispo Awaiting outpt dialysis placement, probably at [facility]; if not will try [facility] Physician Review Additional Text: Physical exam: Patient alert, cooperative. No significant distress noted. Blood pressure is now better control. Heart: Regular rate rhythm Lungs: Clear to auscultation Abdomen: Soft nontender nondistended Extremities: Good range of motion Impression: Acute on chronic renal disease stage 5 now with end-stage renal disease on hemodialysis Hypertension Hyperlipidemia History CVA Constipation Plan: Acute on chronic renal disease stage 5 now with end-stage renal disease on hemodialysis: Waiting on preliminary renal biopsy report from nephrology. Also watiting to hear from [facility] on whether patient will be able to be sent home with planned outpatient dialysis. Still waiting approval. Social work was also to check another dialysis company and location in [facility]. Will discuss with nephrology at length. If she is not approve for outpatient dialysis then patient will likely go home with catheter and placed and return to the hospital as needed for dialysis. Will discuss further with family, patient and Nephro logy. Possible discharge as early as today. Hypertension: Blood pressure improved with metoprolol, Norvasc and hydralazine. Hyperlipidemia: Continue Crestor History CVA: Continue Plavix. Constipation: Continue with stool softener.
[2020-08-02] MEDS: HYDRALAZINE HCL 25 MG TABLET PO SCH ×3 (09:08→21:00)
[2020-08-02] MEDS: DOCUSATE NA 100 MG CAP PO SCH (09:08)
[2020-08-02] MEDS: METOPROLOL XL 50 MG TAB PO SCH ×2 (09:08→21:00)
[2020-08-02] MEDS: AMLODIPINE 10 MG TAB PO SCH (09:08)
--- NOTE | 2020-08-02 09:30 | P.PN ---
Subjective Date of Service: 08/02/20 Primary Care Provider: none; From the [facility] Chief Complaint: HD catheter Subjective: No new changes, Doing well Physical Examination - Vital Signs Temperature: 98.5 F Blood Pressure: 139/68 Pulse: 85 Respirations: 16 Pulse Ox (%): 96 - Studies Laboratory Data (last 24 hrs) 08/02/20 06:28: Sodium 141, Potassium 3.7, BUN 23 H D, Creatinine 2.08 H D, Glucose 112 H, Phosphorus 2.7, Magnesium 2.5 H 08/02/20 05:00: Phosphorus Cancelled, Magnesium Cancelled Medications List Reviewed: Yes Assessment & Plan Discharge Plan: Home Plan to discharge in: 24 Hours Physician Review Additional Text: Physical exam: Patient alert, cooperative. No significant distress noted. Blood pressure is now better control. Heart: Regular rate rhythm Lungs: Clear to auscultation Abdomen: Soft nontender nondistended Extremities: Good range of motion Impression: Acute on chronic renal disease stage 5 now with end-stage renal disease on hemodialysis Hypertension Hyperlipidemia History CVA Constipation Plan: Acute on chronic renal disease stage 5 now with end-stage renal disease on hemodialysis: Waiting on preliminary renal biopsy report from nephrology. Renal notes show that patient has severe interstitial fibrosis and renal atrophy. This may be consistent with end-stage renal disease requiring dialysis indefinitely. Spoke with social media intern yesterday. Patient has been approved by [employer] for continued outpatient dialysis. Currently awaiting on approval for path to payment. Case discussed with patient and daughter. Anticipate likely discharge tomorrow after arrangements have been made and chair time in place. I will turn the service over to the hospitalist team tomorrow. I will go plan of care with him. Hypertension: Blood pressure improved with metoprolol, Norvasc and hydralazine. Hyperlipidemia: Continue Crestor History CVA: Continue Plavix. Constipation: Continue with stool softener. Time Spent Managing Pts Care (In Minutes): 55
[2020-08-02] MEDS: MULTIVITAMINS,THERAPEUT 1 TAB PO SCH (17:45)
[2020-08-02] MEDS: ROSUVASTATIN 10 MG TAB PO SCH (21:32)
[2020-08-03 06:19] LABS: Magnesium 2.7 mg/dL (1.8-2.4); Potassium 3.7 mmol/L (3.5-5.1)
[2020-08-03] MEDS: METOPROLOL XL 50 MG TAB PO SCH ×2 (07:59→21:00)
[2020-08-03] MEDS: AMLODIPINE 10 MG TAB PO SCH (07:59)
[2020-08-03] MEDS: DOCUSATE NA 100 MG CAP PO SCH (08:01)
[2020-08-03] MEDS: HYDRALAZINE HCL 25 MG TABLET PO SCH ×3 (08:34→20:59)
[2020-08-03] MEDS: MULTIVITAMINS,THERAPEUT 1 TAB PO SCH (08:34)
--- NOTE | 2020-08-03 20:46 | PN ---
Date of Progress Note: 08/03/2020 Chief Complaint: End-stage renal disease. Subjective: The patient underwent renal biopsy to rule out acute kidney injury and evaluate for etio logy of chronic kidney disease. The patient at this point has end-stage renal disease and she is sta rted on dialysis. Review of Systems: Denies fever or chills. Physical Examination: Lungs: Diminished breath sounds at bases. Heart: S1, S2. Abdomen: Soft, benign. Extremities: No edema. Impression And Plan: 1.End-stage renal disease. The patient is to have dialysis tomorrow. Monitor electrolytes and cont inue renal diet and fluid restriction. 2.Status post kidney biopsy showed severe interstitial fibrosis, tubular atrophy, which is consisten t with end-stage renal disease. 3.Anemia in chronic kidney disease. Continue EMMA. Monitor hemoglobin level. LESLIE/KEREN Voice ID: [id number] Report ID: [id number]
[2020-08-03] MEDS: ROSUVASTATIN 10 MG TAB PO SCH (20:59)
[2020-08-04 06:24] LABS: Magnesium 2.4 mg/dL (1.8-2.4); Potassium 3.9 mmol/L (3.5-5.1)
[2020-08-04] MEDS: HYDRALAZINE HCL 25 MG TABLET PO SCH ×3 (08:41→21:00)
[2020-08-04] MEDS: AMLODIPINE 10 MG TAB PO SCH (08:41)
[2020-08-04] MEDS: METOPROLOL XL 50 MG TAB PO SCH ×2 (08:41→21:00)
[2020-08-04] MEDS: MULTIVITAMINS,THERAPEUT 1 TAB PO SCH (08:41)
[2020-08-04] MEDS: DOCUSATE NA 100 MG CAP PO SCH (08:41)
--- NOTE | 2020-08-04 09:15 | P.PN ---
Date of Service: 08/03/20 Subjective Arranging for placement; Awaiting for dialysis to complete the arrangement. Review of Systems 10-point ROS is otherwise unremarkable Physical Examination - Vital Signs reviewed - Physical Exam General: Alert, In no apparent distress, Oriented x3 Respiratory: Clear to auscultation bilaterally, Normal air movement Cardiovascular: Regular rate/rhythm, Normal S1 S2, No murmurs Gastrointestinal: Normal bowel sounds, Soft and benign, Non-distended, No tenderness Musculoskeletal: No clubbing, No swelling, No tenderness Assessment & Plan - Problems (Diagnosis) (1) ESRD (end stage renal disease) Current Visit: Yes Status: Acute (2) HTN (hypertension) Current Visit: Yes Status: Acute - Plan Plan: 1. Placement pending 2. Hemodialysis per Nephrology 3. Monitor blood pressure 4. Monitor renal function 5. Monitor electrolytes 6. Hold anti-platelet therapy 7. Repeat biopsy 8. GI/DVT prophylaxis
--- NOTE | 2020-08-04 09:28 | P.PN ---
Date of Service: 08/04/20 Subjective Arranging for placement at dialysis center. Only a few things left pending. Awaiting for dialysis to complete the arrangement Review of Systems 10-point ROS is otherwise unremarkable Physical Examination - Vital Signs reviewed - Physical Exam General: Alert, In no apparent distress, Oriented x3 Respiratory: Clear to auscultation bilaterally, Normal air movement Cardiovascular: Regular rate/rhythm, Normal S1 S2, No murmurs Gastrointestinal: Normal bowel sounds, Soft and benign, Non-distended, No tenderness Musculoskeletal: No clubbing, No swelling, No tenderness Neurological: Sensation intact, Cranial nerves 3-12 intact Assessment & Plan - Problems (Diagnosis) (1) ESRD (end stage renal disease) Current Visit: Yes Status: Acute (2) HTN (hypertension) Current Visit: Yes Status: Acute - Plan Plan: 1. Placement pending 2. Hemodialysis per Nephrology 3. Monitor blood pressure 4. Monitor renal function 5. Monitor electrolytes 6. Hold anti-platelet therapy 7. GI/DVT prophylaxis
--- NOTE | 2020-08-04 18:13 | PN ---
Date of Progress Note: 08/04/2020 Subjective: The patient was admitted with acute kidney injury, unknown etiology. The patient undergone kidney biopsy. Unfortunately, the biopsy was only [place] nonconclusive. The patient was started on dialysis. Physical Examination: Vital Signs: Blood pressure 131/62, pulse of 66, afebrile. Chest: Clear to auscultation. Heart: S1, S2. Regular. Abdomen: Soft, nontender. Extremity: No edema. Neurologic: Alert. No focality. Laboratory Data: H and H 10.3/30.4. Sodium 141, potassium 3.9, bicarb 26, BUN 46, creatinine 3.2, calcium 9.1, magnesium 2.3. The rest of her serology completely negative. Serum protein electrophoresis. No suspicious M spike. Current Medications: The patient on include; 1. Heparin. 2. Amlodipine. 3. Hydralazine. 4. Metoprolol. 5. Hydrocodone. Assessment And Plan: 1. Acute kidney injury, unknown etiology. Serology positive for rheumatoid arthritis. Kidney biopsy was inconclusive. I am going to continue dialysis TTS. The patient is scheduled for dialysis today. We will arrange for kidney biopsy tomorrow. We will hold on any heparin. The patient did not receive any Plavix since admission. 2. Hypertension, controlled, optimal. Continue current medications. Keep holding losartan. 3. Coronary artery disease, stable. 4. Anemia of chronic kidney disease. We will continue with EMMA. time spent examined the patient face to face s discussed with the patient placed order discussing the case with other trampoline team coach including nurses , discussing with other specialist include a hospitalist 45 min ADRIANO Voice ID: [id number] Report ID: [id number] MTDD
[2020-08-04] MEDS: ROSUVASTATIN 10 MG TAB PO SCH (21:00)
[2020-08-05] MEDS: DOCUSATE NA 100 MG CAP PO SCH (09:20)
[2020-08-05] MEDS: MULTIVITAMINS,THERAPEUT 1 TAB PO SCH (09:20)
[2020-08-05] MEDS: HYDRALAZINE HCL 25 MG TABLET PO SCH ×3 (09:20→20:26)
[2020-08-05] MEDS: AMLODIPINE 10 MG TAB PO SCH (09:21)
[2020-08-05] MEDS: METOPROLOL XL 50 MG TAB PO SCH ×2 (09:21→20:25)
--- NOTE | 2020-08-05 13:20 | PN ---
Date of Progress Note: 08/04/2020 Subjective: The patient was admitted with acute kidney injury, unknown etiology. Serology positive for rheumatoid factor. Biopsy done, not conclusive as it was only [place] Physical Examination: Vital Signs: Blood pressure 145/67, pulse of 74, afebrile. Chest: Clear to auscultation. Heart: S1, S2. Systolic murmur. Abdomen: Soft, nontender. Extremity: No edema. Neurologic: Alert, oriented. No tremor. Laboratory Data: H and H 10.3/30.4. Sodium 141, potassium 3.9, bicarb 26, BUN 46, creatinine 3.2, calcium 9.1. Current Medications: The patient on include heparin, hydralazine, amlodipine, rosuvastatin, docusate. Assessment And Plan: 1. Acute kidney injury, unknown etiology. Waiting for repeated biopsy Monday. Continue dialysis Monday, Monday, Monday. The patient was accepted for dialysis at [facility]. Plan to dialyze on Monday, then discharge after. 2. Hypertension, controlled, optimal. Continue current medication. 3. Anemia of chronic kidney disease. Continue EMMA. time spent examined the patient face to face s discussed with the patient placed order discussing the case with other wall steamer including nurses , discussing with other specialist include a hospitalist 45 min ADRIANO Voice ID: [id number] Report ID: [id number] MTDD
[2020-08-05] MEDS: ROSUVASTATIN 10 MG TAB PO SCH (20:25)
[2020-08-06] MEDS: MULTIVITAMINS,THERAPEUT 1 TAB PO SCH (08:32)
[2020-08-06] MEDS: DOCUSATE NA 100 MG CAP PO SCH (08:32)
[2020-08-06] MEDS: METOPROLOL XL 50 MG TAB PO SCH ×2 (08:52→21:24)
[2020-08-06] MEDS: AMLODIPINE 10 MG TAB PO SCH (09:00)
[2020-08-06] MEDS: HYDRALAZINE HCL 25 MG TABLET PO SCH ×3 (09:00→21:24)
--- NOTE | 2020-08-06 12:19 | PN ---
Date of Progress Note: 08/06/2020 Subjective: The patient was admitted with acute kidney injury, unknown etiology. Serology all negative, except positive rheumatoid factor. The patient is scheduled for repeated biopsy tomorrow. Physical Examination: Vital Signs: Blood pressure 140/75, pulse of 71, afebrile. Chest: Clear to auscultation. Heart: S1, S2. Regular. Abdomen: Soft, nontender. Extremity: No edema. Neuro: Alert and oriented x3. No focality. Current Medications: Amlodipine, hydralazine, metoprolol, rosuvastatin, Tylenol, docusate. Laboratory Data: WBC 9.1, H and H 10.3/30.4. Sodium 141, potassium 3.9, bicarb 26, BUN 46, creatinine 3.2, GFR of 14, calcium 9.1. Assessment And Plan: 1. Acute kidney injury, dialysis dependent. We will continue dialysis. We will dialyze the patient today, biopsy tomorrow. Keep holding any anticoagulation today. We will monitor the patient after biopsy. If there are no symptoms, clear from the renal standpoint for discharge planning. Has been accepted on [facility]. 2. Hypertension. Continue current medications. Keep holding any LILO inhibitor or ARB. 3. Secondary hyperparathyroidism, stable. No need for calcitriol. 4. Anemia of chronic kidney disease. Serum protein electrophoresis was negative. Continue EMMA. time spent examined the patient face to face s discussed with the patient placed order discussing the case with other crab steamer including nurses , discussing with other specialist include a hospitalist 45 min ADRIANO Voice ID: [id number] Report ID: [id number] RANJITH
[2020-08-06] MEDS: VANCOMYCIN/NS 1 gm 1 GM/250 ML BAG IVPB ONE ×2 (19:00)
[2020-08-06] MEDS: ROSUVASTATIN 10 MG TAB PO SCH (21:24)
[2020-08-07 08:23] VITALS: BP 154/67; TEMP 97.7
[2020-08-07] MEDS: HYDRALAZINE HCL 25 MG TABLET PO SCH ×2 (09:00→15:20)
[2020-08-07] MEDS: MULTIVITAMINS,THERAPEUT 1 TAB PO SCH (09:00)
[2020-08-07] MEDS: DOCUSATE NA 100 MG CAP PO SCH (09:00)
[2020-08-07] MEDS: METOPROLOL XL 50 MG TAB PO SCH (09:00)
[2020-08-07] MEDS: AMLODIPINE 10 MG TAB PO SCH (09:00)
--- NOTE | 2020-08-07 09:04 | P.PN ---
Date of Service: 08/05/20 Subjective Patient doing well with no complaints Review of Systems 10-point ROS is otherwise unremarkable Physical Examination - Vital Signs reviewed - Physical Exam General: Alert, In no apparent distress, Oriented x3 Respiratory: Clear to auscultation bilaterally, Normal air movement Cardiovascular: Regular rate/rhythm, Normal S1 S2, No murmurs Gastrointestinal: Normal bowel sounds, Soft and benign, Non-distended, No tenderness Musculoskeletal: No clubbing, No swelling, No tenderness Neurological: Sensation intact, Cranial nerves 3-12 intact Assessment & Plan - Problems (Diagnosis) (1) ESRD (end stage renal disease) Current Visit: Yes Status: Acute (2) HTN (hypertension) Current Visit: Yes Status: Acute - Plan Plan: 1. Placement pending 2. Hemodialysis per Nephrology 3. Monitor blood pressure 4. Monitor renal function 5. Monitor electrolytes 6. Hold anti-platelet therapy 7. Biopsy pending 8. GI/DVT prophylaxis
--- NOTE | 2020-08-07 09:09 | P.PN ---
Date of Service: 08/06/20 Subjective Placement completed; DC after biopsy Review of Systems 10-point ROS is otherwise unremarkable Physical Examination - Vital Signs reviewed - Physical Exam General: Alert, In no apparent distress, Oriented x3 Respiratory: Clear to auscultation bilaterally, Normal air movement Cardiovascular: Regular rate/rhythm, Normal S1 S2, No murmurs Gastrointestinal: Normal bowel sounds, Soft and benign, Non-distended, No tenderness Musculoskeletal: No clubbing, No swelling, No tenderness Assessment & Plan - Problems (Diagnosis) (1) ESRD (end stage renal disease) Current Visit: Yes Status: Acute (2) HTN (hypertension) Current Visit: Yes Status: Acute - Plan Plan: 1. Placement completed; biopsy Monday; DC afterwards 2. Hemodialysis per Nephrology 3. Monitor blood pressure 4. Monitor renal function 5. Monitor electrolytes 6. Hold anti-platelet therapy 7. GI/DVT prophylaxis
--- NOTE | 2020-08-07 09:13 | P.DS ---
Discharge Date: 08/07/20 Primary Care Provider: none; From the [facility] Reason for Admission: HD catheter - Problems (1) ESRD (end stage renal disease) Current Visit: Yes Status: Acute (2) HTN (hypertension) Current Visit: Yes Status: Acute Brief History of Present Illness: Ms. Bello is a 75 yo female with HTN and h/o of CVA here as a direct admit from Dr. Pantoja's office for catheter placement by surgery and initiation of hemodialysis. Per daughter, she had labs checked last month and more recently as was told her GFR was low. She denies chest pain, SOB, pain, edema, nausea, vomiting. Hemoglobin 11.5, Hematocrit 34.2. BUN 63. Cr 2.93. GFR 16. Glucose 147. Uric acid 7.7. PTH 175.5 Vital Signs/Physical Exam: Temp Pulse Resp BP Pulse Ox 97.7 F 68 18 154/67 H 96 08/07/20 08:00 08/07/20 08:00 08/07/20 08:00 08/07/20 08:00 08/07/20 08:00 General: Alert, In no apparent distress, Oriented x3 Laboratory Data at Discharge: WBC 9.10 K/uL (4.3-10.9) D 08/01/20 06:30 Hgb 10.3 g/dL (12.0-15.0) L 08/01/20 06:30 Hct 30.4 % (36.0-45.0) L 08/01/20 06:30 Plt Count 147 K/uL (152-406) L 08/01/20 06:30 PT 10.5 SECONDS (9.5-12.5) 07/24/20 10:27 INR 0.91 07/24/20 10:27 APTT 28.3 SECONDS (24.3-36.9) 07/24/20 10:27 Sodium 141 mmol/L (136-145) 08/04/20 05:29 Potassium 3.9 mmol/L (3.5-5.1) 08/04/20 05:29 BUN 46 mg/dL (7-18) H 08/04/20 05:29 Creatinine 3.22 mg/dL (0.55-1.3) H 08/04/20 05:29 Glucose 104 mg/dL (74-106) 08/04/20 05:29 Uric Acid 7.7 mg/dL (2.6-6.0) H 07/23/20 20:38 Phosphorus 2.7 mg/dL (2.5-4.9) 08/02/20 06:28 Magnesium 2.4 mg/dL (1.8-2.4) 08/04/20 05:29 Total Bilirubin 0.4 mg/dL (0.2-1.0) 07/27/20 05:38 AST 36 U/L (15-37) 07/27/20 05:38 ALT 44 U/L (12-78) 07/27/20 05:38 Alkaline Phosphatase 56 U/L (45-117) 07/27/20 05:38 Home Medications: RX: Amlodipine [Norvasc*] 5 mg PO DAILY 07/23/20 RX: Clopidogrel Bisulfate [Plavix*] 75 mg PO DAILY 07/23/20 RX: Metoprolol Succinate [Toprol Xl*] 50 mg PO BID 07/23/20 RX: Rosuvastatin [Crestor*] 10 mg PO DAILY 07/23/20 RX: Docusate [Colace Cap*] 100 mg PO DAILY #30 cap 08/07/20 RX: Hydralazine [Apresoline*] 25 mg PO TID #90 tab 08/07/20 New Medications: RX: Hydralazine [Apresoline*] 25 mg PO TID #90 tab RX: Docusate [Colace Cap*] 100 mg PO DAILY #30 cap Physician Discharge Instructions: OK TO DC IV AND DC HOME FOLLOW-UP WITH PRIMARY CARE PROVIDER IN 1-2 WEEKS FOLLOW-UP WITH NEPHROLOGY FOR HEMODIALYSIS RETURN TO THE ER IF symptoms worsens CALL or TEXT DR. SILVA AT [phone] IF ANY QUESTIONS REGARDING HOSPITAL STAY. PLEASE CALL THE FLOOR AT [phone] IF ANY MEDICATION OR NURSING QUESTIONS. Diet: Renal Activity: Fall precautions Time spent managing pt's care (in minutes): 35
--- NOTE | 2020-08-07 09:54 | P.PN ---
Subjective Date of Service: 08/07/20 Primary Care Provider: none; From the [facility] Chief Complaint: HD catheter Subjective: No new changes Physical Examination - Vital Signs Temperature: 97.7 F Blood Pressure: 154/67 Pulse: 68 Respirations: 18 Pulse Ox (%): 96 - Physical Exam General: In no apparent distress HEENT: Atraumatic, Normocephalic Neck: Supple Cardiovascular: No murmurs Gastrointestinal: Soft and benign, Non-distended Neurological: Normal tone - Studies Medications List Reviewed: Yes Assessment And Plan - Plan A/P # ESRD on HD TTS No acute indication for HD today Cont HD TTS HD access: permcath S/p kidney biopsy on 07/29/20 - showed severe interstitial fibrosis & tubular atrophy c/w true ESRD Repeat kidney biopsy today, f/u result Renal diet Nephro-quincy daily # Htn; Hx of CVA BP at goal Cont current regimen # Anemia Monitor H/H # 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 No significant distress noted. Blood pressure is now better control. Heart: Regular rate rhythm Lungs: Clear to auscultation Abdomen: Soft nontender nondistended Extremities: Good range of motion Impression: Acute on chronic renal disease stage 5 now with end-stage renal disease on hemodialysis Hypertension Hyperlipidemia History CVA Constipation Plan: Acute on chronic renal disease stage 5 now with end-stage renal disease on hemodialysis: Waiting on preliminary renal biopsy report from nephrology. Also watiting to hear from [facility] on whether patient will be able to be sent home with planned outpatient dialysis. Still waiting approval. Social work was also to check another dialysis company and location in [facility]. Will discuss with nephrology at length. If she is not approve for outpatient dialysis then patient will likely go home with catheter and placed and return to the hospital as needed for dialysis. Will discuss further with family, patient and Nephrology. Possible discharge as early as today. Hypertension: Blood pressure improved with metoprolol, Norvasc and hydralazine. Hyperlipidemia: Continue Crestor History CVA: Continue Plavix. Constipation: Continue with stool softener.
[2020-08-07] MEDS ORDERED: NALOXONE 0.4 MG/ML VIAL ONE (10:16)
[2020-08-07] MEDS ORDERED: FLUMAZENIL 0.1 MG/ML (5 mL VIAL) IV ONE (10:16)
[2020-08-07] MEDS ORDERED: MIDAZOLAM HCL 2 MG/2 ML INJ ONE (10:16)
[2020-08-07] MEDS ORDERED: FENTANYL CITR 100 MCG/2 ML ONE (10:16)
[2020-08-07] MEDS ORDERED: NA CHLORIDE 0.9% 500 ML ONE (10:17)
--- NOTE | 2020-08-07 12:45 | RAD REPORT ---
EXAM DESCRIPTION: CT - Renal Biopsy CT - 08/07/2020 12:03 pm CLINICAL HISTORY: acute kidney injury Flank pain COMPARISON: Renal Biopsy\CT dated 07/29/2020 FINDINGS: Preoperative diagnosis: Acute kidney injury Post operative diagnosis: Same Conscious Sedation: 45 minutes utilizing IV fentanyl and midazolam. Patient was continuously monitored by nursing staff. Contrast used: NONE Estimated blood loss: less than 5 mL Specimens: 2 x 18 gauge core specimens The patient was placed prone on the table and the right flank area was prepped and draped in the usua l sterile fashion. 1% lidocaine was infiltrated into the subcutaneous tissues for local anesthesia. U nder computed tomographic guidance, a 17 gauge introducer was advanced into the inferior pole right k idney. Subsequently, a 18 gauge, 10 cm long, 20 mm throw core biopsy gun was advanced into the kidney and 2 cores were obtained. Postprocedure imaging demonstrated small hematoma adjacent to the biopsy site. Samples were given to pathology for analysis. The patient tolerated the procedure without immediate complication and transf erred to the floor in stable condition. IMPRESSION: Successful nonfocal right renal biopsy. 45 minutes of IV conscious sedation was utilized. All CT scans are performed using dose optimization technique as appropriate and may include automated exposure control or mA/KV adjustment according to patient size.
[2020-08-07 14:17] VITALS: O2SAT 98
--- NOTE | 2020-08-11 02:28 | P.DS ---
Discharge Date: 08/07/20 Primary Care Provider: none; From the [facility] Disposition: ROUTINE DISCHARGE Discharge Condition: GOOD Reason for Admission: HD catheter - Problems (1) ESRD (end stage renal disease) Status: Acute (2) HTN (hypertension) Status: Acute Brief History of Present Illness: Ms. Bello is a 75 yo female with HTN and h/o of CVA here as a direct admit from Dr. Pantoja's office for catheter placement by surgery and initiation of hemodialysis. Per daughter, she had labs checked last month and more recently as was told her GFR was low. She denies chest pain, SOB, pain, edema, nausea, vomiting. Hemoglobin 11.5, Hematocrit 34.2. BUN 63. Cr 2.93. GFR 16. Glucose 147. Uric acid 7.7. PTH 175.5 Hospital Course: Decision was made to proceed with hemodialysis. Patient had done well after hemodialysis. Clinical symptoms are improved. We arranged for outpatient dialysis as well. Patient's clinically doing well at this time, patient is stable for discharge home. Vital Signs/Physical Exam: Temp Pulse Resp BP Pulse Ox 97.7 F 68 18 154/67 H 96 08/07/20 22:52 08/07/20 22:52 08/07/20 22:52 08/07/20 22:52 08/07/20 22:52 General: Alert, In no apparent distress, Oriented x3 Laboratory Data at Discharge: WBC 9.10 K/uL (4.3-10.9) D 08/01/20 06:30 Hgb 10.3 g/dL (12.0-15.0) L 08/01/20 06:30 Hct 30.4 % (36.0-45.0) L 08/01/20 06:30 Plt Count 147 K/uL (152-406) L 08/01/20 06:30 PT 10.5 SECONDS (9.5-12.5) 07/24/20 10:27 INR 0.91 07/24/20 10:27 APTT 28.3 SECONDS (24.3-36.9) 07/24/20 10:27 Sodium 141 mmol/L (136-145) 08/04/20 05:29 Potassium 3.9 mmol/L (3.5-5.1) 08/04/20 05:29 BUN 46 mg/dL (7-18) H 08/04/20 05:29 Creatinine 3.22 mg/dL (0.55-1.3) H 08/04/20 05:29 Glucose 104 mg/dL (74-106) 08/04/20 05:29 Uric Acid 7.7 mg/dL (2.6-6.0) H 07/23/20 20:38 Phosphorus 2.7 mg/dL (2.5-4.9) 08/02/20 06:28 Magnesium 2.4 mg/dL (1.8-2.4) 08/04/20 05:29 Total Bilirubin 0.4 mg/dL (0.2-1.0) 07/27/20 05:38 AST 36 U/L (15-37) 07/27/20 05:38 ALT 44 U/L (12-78) 07/27/20 05:38 Alkaline Phosphatase 56 U/L (45-117) 07/27/20 05:38 Home Medications: Amlodipine [Norvasc*] 5 mg PO DAILY 07/23/20 Clopidogrel Bisulfate [Plavix*] 75 mg PO DAILY 07/23/20 Metoprolol Succinate [Toprol Xl*] 50 mg PO BID 07/23/20 Rosuvastatin [Crestor*] 10 mg PO DAILY 07/23/20 Docusate [Colace Cap*] 100 mg PO DAILY #30 cap 08/07/20 Hydralazine [Apresoline*] 25 mg PO TID #90 tab 08/07/20 New Medications: Hydralazine [Apresoline*] 25 mg PO TID #90 tab Docusate [Colace Cap*] 100 mg PO DAILY #30 cap Physician Discharge Instructions: OK TO DC IV AND DC HOME FOLLOW-UP WITH PRIMARY CARE PROVIDER IN 1-2 WEEKS FOLLOW-UP WITH NEPHROLOGY FOR HEMODIALYSIS RETURN TO THE ER IF symptoms worsens CALL or TEXT DR. SILVA AT [phone] IF ANY QUESTIONS REGARDING HOSPITAL STAY. PLEASE CALL THE FLOOR AT [phone] IF ANY MEDICATION OR NURSING QUESTIONS. Diet: Renal Activity: Fall precautions Followup: Sridevi Pantoja MD [ACTIVE - CAN ADMIT] - Time spent managing pt's care (in minutes): 35
== END 2020-08-07 16:26 | disposition home or self-care (01) | DRG 674 ==
LOC: PREOBSVTOIN 13:39 → 2ND 17:40
PROVIDERS: ADMIT Hospitalist; ATTEND Internal Medicine Nephrology
PROC: 02HV33Z Insertion of Infusion Device into Superior Vena Cava, Percutaneous Approach (ICD-10-PCS; 2020-07-24)
PROC: 0JH63XZ Insertion of Tunneled Vascular Access Device into Chest Subcutaneous Tissue and Fascia, Percutaneous Approach (ICD-10-PCS; principal; 2020-07-24 12:00)
PROC: 5A1D70Z Performance of Urinary Filtration, Intermittent, Less than 6 Hours Per Day (ICD-10-PCS; 2020-07-25)
PROC: BW4FZZZ Ultrasonography of Neck (ICD-10-PCS; 2020-07-25)
PROC: 0T903ZX Drainage of Right Kidney, Percutaneous Approach, Diagnostic (ICD-10-PCS; 2020-07-29)
DX: N17.9 Acute kidney failure, unspecified (principal); I12.0 Hypertensive chronic kidney disease with stage 5 chronic kidney disease or end stage renal disease; N18.6 End stage renal disease; E78.5 Hyperlipidemia, unspecified; D63.8 Anemia in other chronic diseases classified elsewhere; M19.90 Unspecified osteoarthritis, unspecified site; K59.00 Constipation, unspecified; D63.1 Anemia in chronic kidney disease; D50.9 Iron deficiency anemia, unspecified; I25.10 Atherosclerotic heart disease of native coronary artery without angina pectoris; J84.10 Pulmonary fibrosis, unspecified; N25.81 Secondary hyperparathyroidism of renal origin; Z86.73 Personal history of transient ischemic attack (TIA), and cerebral infarction without residual deficits; Z99.2 Dependence on renal dialysis; Z79.02 Long term (current) use of antithrombotics/antiplatelets; Z79.899 Other long term (current) drug therapy; Z20.822 Contact with and (suspected) exposure to COVID-19
CPT/HCPCS: 36415; 71045; 71046; 76000; 76770; 80048; 80053; 80069; 81003; 81015; 82043; 82306; 82553; 82570; 83735; 83880; 83970; 84100; 84156; 84165; 84550; 85025; 85610; 85730; 86021; 86038; 86160; 86225; 86317; 86335; 86430; 86704; 86706; 86803; 87040; 87086; 87088; 87340; 87389; 88300; 90935; 93005; C1752; J0690; J1100; J1644; J2250; J2310; J2405; J2597; J2704; J3010; J3370; J7030; J7040; U0003